=== PATIENT | male | born 1950 | race Caucasian/White ===

== ENCOUNTER 2021-02-22 14:38 | Inpatient (IN) | payer MEDICARE, OTHER ==
[~2021-02-22] VITALS: Ht 182.9 cm; Wt 75.7 kg
[2021-02-22] MEDS ORDERED: QUET300T2 PO (14:53)
[2021-02-22] MEDS ORDERED: QUET200T PO (14:53)
--- NOTE | 2021-02-22 15:01 | NUR ---
BIB private ambulance, transferred from [facility]. Pt refusing blood draw. Medically cleared for admit to MHU, per provider.
--- NOTE | 2021-02-22 16:38 | NUR ---
Report given to PATITO Valle from U. Pt taken to unit via wheelchair.
[2021-02-22] MEDS ORDERED: MAG HYDROX/AL HYDROX/SIMETH 30 ML LIQUID UDC PO PRN (17:00)
[2021-02-22] MEDS ORDERED: MAGNESIUM HYDROXIDE 30 ML LIQUID UDC PO PRN (17:00)
[2021-02-22] MEDS ORDERED: ACETAMINOPHEN 325 MG TABLET PO PRN (17:00)
[2021-02-22 17:47] VITALS: BP 137/90
--- NOTE | 2021-02-22 18:10 | NUR ---
ADMISSION NOTE: Patient admitted to MHU room 137-A from the emergency room. Patient admitted on a wheelchair accompanied by ER nursing staff. Patient admitted on a 5150 hold for GD that expires on 02/22/21 at 1900. Psychiatrist, Dr. Fraser, notified of admission and patient's hold status. Patient's belongings and valuables inventoried and placed in contraband locker. Patient admitted with lee totaling $2.61, placed in MHU safe. Patient provided with patient's right's handbook and 5150 hold advisement. Skin assessment completed, patient noted with long toenails and hard, dry skin in bottom of feet. Patient refusing photo to be taken. Wound consult placed. Patient states he is a Judaism and is refusing blood transfusions. Upon [id number] assessment, patient is anxious, restless, agitated, angry that he is being admitted, and noted with grandiose delusions. Patient states that the information on the 5150 advisement is incorrect, and that his plan for self care is to "use my money to buy a ticket and fly to [place]. [place]." When patient provided with reality orientation, he became angry and irritable. Patient denies suicidal and homicidal ideation. Patient states that he does not belong on this unit. Patient denies history of mental illness and denies inpatient hospitalizations, despite recently being discharge. Patient denies current or history of alcohol or recreational drug use. Patient is a current pack-a-day smoker. Patient is uncooperative with admission process, refusing to sign admission paperwork. Patient states he received 2 doses of the COVID-19 vaccine, but is unable to recall the month or day he received it. he states that he received the vaccine at [facility] but states "I don't carry a calendar with me to know what month it was. They didn't tell us what month we were in." Patient requires reality orientation.
[2021-02-22 20:01] VITALS: BP 134/81
--- NOTE | 2021-02-22 20:30 | NUR ---
Received patient in his room in bed. He is noted A/O x 3 able to ambulate with steady gait. he is noted hyperverbal; patient noted with poor insight and judgment as to the reason for his admission to MHU/ he stated, "I am not bipolar. my sister brought me here for no reason. She gets mad at me for no reason". Patient requires multiple redirection. He is reassured for his safety. He was given PO fluids and snacks. His V/S are stable. Safety and fall precaution in place. will continue with Q15 min checks.
[2021-02-22] MEDS ORDERED: DIVALPROEX 500 MG TABLET.DR PO SCH (21:00)
[2021-02-22] MEDS: FLUPHENAZINE HCL 5 MG TABLET PO SCH (21:23)
[2021-02-22] MEDS: BENZTROPINE MESYLATE 1 MG TABLET PO SCH (21:23)
[2021-02-22] MEDS: DIVALPROEX 250 MG TABLET.DR PO SCH (21:23)
--- NOTE | 2021-02-22 21:25 | NUR ---
patient was seen and evaluated by dr Fraser, he was placed on a 14 day hold, patient was notify of his hold. He was able able to comply with QHS medications. will continue to monitor.
[2021-02-22] MEDS ORDERED: METF-440 PO (21:44)
[2021-02-22] MEDS ORDERED: GABA-532 PO (21:44)
[2021-02-22] MEDS ORDERED: BLOO-360 IN (21:44)
[2021-02-22] MEDS ORDERED: LISI-782 PO (21:44)
[2021-02-22] MEDS ORDERED: INSU100V28 (21:44)
[2021-02-22] MEDS ORDERED: HYDR-3980 PO (21:44)
[2021-02-23] MEDS: TEMAZEPAM 7.5 MG CAPSULE PO PRN (00:27)
--- NOTE | 2021-02-23 06:51 | NUR ---
Patient slept for approx. 5 hrs through the night. he is noted calm and cooperative. no aggressive combative bx noted at this time.
[2021-02-23 07:30] VITALS: BP 107/63
[2021-02-23] MEDS: FLUPHENAZINE HCL 5 MG TABLET PO SCH ×2 (08:58→20:03)
[2021-02-23] MEDS: BENZTROPINE MESYLATE 1 MG TABLET PO SCH ×2 (08:58→20:03)
[2021-02-23] MEDS: DIVALPROEX 250 MG TABLET.DR PO SCH ×2 (08:58→20:03)
[2021-02-23] MEDS: NICOTINE 14 MG/24HR PATCH TD SCH (08:59)
[2021-02-23] MEDS: LORAZEPAM 0.5 MG TABLET PO PRN ×2 (09:01→20:03)
--- NOTE | 2021-02-23 13:57 | NUR ---
Firearms Report: [employer] Worker completed and submitted a [employer] firearms report for 5150 grave disability certifications. A copy of report has been placed in patient chart.
--- NOTE | 2021-02-23 14:29 | NUR ---
GPS: PT RECEIVED TODAY ON BED. PT ALERT AND ORIENTED X3. PT COMPLIANT WITH MEDICATION. HYPERVERBA, SEEN AT ACTIVITY ROOM AND PARTICIPATES WITH GROUP THERAPY.
[2021-02-23 15:37] VITALS: BP 108/53
--- NOTE | 2021-02-23 17:55 | NUR ---
GPS: HEARD PT TALKING OVER THE PHONE WITH HIS SISTER FROM [facility] THAT AT [facility], THERE WERE 2 EVIL EMPLOYEES ADMINISTERING POISON ON IV AND A LOT OF PT AND GETS MISSING. PT HAS WRITTEN NOTES ABOUT IT IN HIS POSITION. PT THIS AFTERNOON WAS ASKING FOR [facility] NUMBER.
[2021-02-23 20:42] VITALS: BP 96/62
[2021-02-24] MEDS: TEMAZEPAM 7.5 MG CAPSULE PO PRN ×2 (02:19→21:25)
[2021-02-24] MEDS: LORAZEPAM 0.5 MG TABLET PO PRN ×2 (05:08→15:23)
--- NOTE | 2021-02-24 06:17 | NUR ---
Received patient at the start of the shift ,walking rapidly in the direction of this literary writer, with a bedspread wrapped around him, exclaiming "I am [place]ac[place] ! ".This patient was up and down all night long. Uncooperative, forgetful, argumentative and no insight to his surroundings . Constantly disrupting the unit and not responding to redirection. Patient has poor impulse control and will sit down in the hallway for no apparent reason. Continuing to monitor for safety and behavior escalation.
[2021-02-24 07:30] VITALS: BP 174/93
--- NOTE | 2021-02-24 07:33 | NUR ---
[facility] Initial Discharge Note [facility] [address], [place] [address] where he resides with his sister. SW met with pt to discuss discharge planning and pt appeared uncertain about his living situation. [facility] received voice mail from pt's sister requesting assistance with placement in assisted living. [facility] called and left voice mail for pt's sister requesting call back to discuss discharge plan.
--- NOTE | 2021-02-24 07:33 | NUR ---
SW Family Contact SW received a voicemail from pt's sister Tana Mc ([phone]) requesting assistance seeking placement at assisted living. SW left a voicemail for patient's sister requesting call back to discuss treatment and discharge plan. Waiting for a call back.
[2021-02-24] MEDS: NICOTINE 14 MG/24HR PATCH TD SCH (08:12)
[2021-02-24] MEDS: DIVALPROEX 250 MG TABLET.DR PO SCH ×2 (08:12→20:18)
[2021-02-24] MEDS: BENZTROPINE MESYLATE 1 MG TABLET PO SCH ×2 (08:12→20:18)
[2021-02-24] MEDS: FLUPHENAZINE HCL 5 MG TABLET PO SCH ×2 (08:12→20:18)
--- NOTE | 2021-02-24 10:48 | NUR ---
WOUND CARE CONSULT: PT PRESENTS WITH LONG TOENAILS AND CALLUSES ON PLANTAR FEET WHICH ARE TENDER, PER PT REPORT. PT STATES WOULD LIKE MEAT SALES AND STORAGE MANAGER TO SEE CALLUSES BUT WANTS TOENAILS TO FALL OFF ON THEIR OWN. PT IS AMBULATORY AND CONTINENT. DR MISHRA NOTIFIED OF DPM CONSULT REQUEST. WILL SEE PRN. CADET IN AGREEMENT WITH PLAN OF CARE.
--- NOTE | 2021-02-24 15:08 | NUR ---
GPS: PT HYPERVERBAL WHEN IT COMES TO HIS SCIENTOLOGY. ATTENTION SEEKER AND LIKES PACING THE HALLWAY. PT USES THE PHONE TO CALL ALL THE NUMBERS IN HER MIND. PT LIKES TO CALL "[employer]ATION [employer]" TO REPORT INJURY. REDIRECTED PT.
--- NOTE | 2021-02-24 15:24 | NUR ---
GPS:l PT FEELS ANXIOUS, PACING THE HALLWAYS AND KEPT SHARI BACK TO USE THE TELEPHONE AND ASKING FOR YELLOW PAGES AND ASKING NURSE TO GET RANDOM PERSONS NUMBER. OFFERED ATIVAN AND TOLERATED WELL BY PT. WILL MONITOR.
--- NOTE | 2021-02-24 15:49 | NUR ---
GPS: PER PHARMACY, THEY DON'T HAVE UREA 20% CREAM AND THEY CANT GET HOLD OF THE MD.
--- NOTE | 2021-02-24 16:15 | NUR ---
PROBABLE CAUSE HEARING: Patient's probable cause hearing was held today for the 5250 hold. 5250 hold upheld for GD. Patient requesting a writ hearing. Writ hearing petition faxed to court by this entry writer. Court was called to confirm document was received but the court is closed.
[2021-02-24] MEDS ORDERED: UREA 20% CREAM 85 GM TUBE TP SCH (17:00)
[2021-02-24 20:08] VITALS: BP 123/73
[2021-02-25 07:30] VITALS: BP 115/79
[2021-02-25] MEDS: DIVALPROEX 250 MG TABLET.DR PO SCH (08:48)
[2021-02-25] MEDS: BENZTROPINE MESYLATE 1 MG TABLET PO SCH (08:48)
[2021-02-25] MEDS: FLUPHENAZINE HCL 5 MG TABLET PO SCH (08:48)
[2021-02-25] MEDS: NICOTINE 14 MG/24HR PATCH TD SCH (08:48)
[2021-02-25] MEDS: ENSURE ENLIVE (VAN) 240 ML LIQUID PO SCH (08:49)
--- NOTE | 2021-02-25 14:40 | NUR ---
GPS: PT ALERT AND COOPERATIVE WITH CARE. NEEDY AND LIKES PACING THE HALLWAY AND RESPONSIVE WITH STAFF AND OTHER PT. CALLS THE PHONE TO HIS SISTER AND OTHER RANDOM NUMBERS. NO AGITATION NOTED AT THIS TIME.
[2021-02-25 16:05] VITALS: BP 120/81
[2021-02-25 20:00] VITALS: BP 124/79
[2021-02-25] MEDS: TEMAZEPAM 7.5 MG CAPSULE PO PRN (21:20)
[2021-02-25] MEDS: LORAZEPAM 0.5 MG TABLET PO PRN (23:49)
--- NOTE | 2021-02-26 06:33 | NUR ---
GPS: Pt.slept 8.15 last night. Pt has a scheduled blood drawing soon and is already telling staff that he will refuse it because he's a Druze. Remains paranoid,delusional and grandiose at times. Re-directed prn. No aggressive behavior noted. Poor insight to present situation. Safety emphasized.
[2021-02-26 07:30] VITALS: BP 139/88
[2021-02-26] MEDS: ENSURE ENLIVE (VAN) 240 ML LIQUID PO SCH (09:00)
[2021-02-26] MEDS: NICOTINE 14 MG/24HR PATCH TD SCH (10:14)
[2021-02-26] MEDS: FLUPHENAZINE HCL 5 MG TABLET PO SCH ×3 (10:14→18:02)
[2021-02-26] MEDS: BENZTROPINE MESYLATE 1 MG TABLET PO SCH ×3 (10:14→18:02)
[2021-02-26] MEDS: DIVALPROEX 250 MG TABLET.DR PO SCH ×3 (10:14→18:02)
[2021-02-26 16:40] VITALS: BP 103/54
[2021-02-26] MEDS: UREA 20% CREAM 85 GM TUBE TP SCH (18:02)
[2021-02-26 20:28] VITALS: BP 124/83
[2021-02-26] MEDS: LORAZEPAM 0.5 MG TABLET PO PRN (20:57)
[2021-02-26] MEDS: TEMAZEPAM 15 MG CAPSULE PO PRN (22:48)
--- NOTE | 2021-02-26 22:52 | NUR ---
GPS: Pt.is anxious,restless and pacing along the hallways. Mentally pre-occupied. MD Fraser was just here and increased sleeping pill dosage. Restoril 15 mg given PO for insomnia. Quiet environment provided to facilitate sleep. Will continue to monitor.
[2021-02-27 08:04] VITALS: BP 98/67
[2021-02-27] MEDS: BENZTROPINE MESYLATE 1 MG TABLET PO SCH ×3 (08:27→17:17)
[2021-02-27] MEDS: NICOTINE 14 MG/24HR PATCH TD SCH (08:27)
[2021-02-27] MEDS: DIVALPROEX 250 MG TABLET.DR PO SCH ×3 (08:27→17:17)
[2021-02-27] MEDS: UREA 20% CREAM 85 GM TUBE TP SCH ×2 (08:27→17:17)
[2021-02-27] MEDS: FLUPHENAZINE HCL 5 MG TABLET PO SCH ×3 (08:27→17:17)
[2021-02-27] MEDS: ENSURE ENLIVE (VAN) 240 ML LIQUID PO SCH (08:39)
[2021-02-27 15:44] VITALS: BP 116/68
[2021-02-27 20:00] VITALS: BP 117/72
--- NOTE | 2021-02-27 20:30 | NUR ---
RECEIVED PATIENT IN THE DAY ROOM. HE IS NOTED A/O X 3, ABLE TO VERBALIZED FEELINGS. PT IS NOTED HYPERVERBAL, RESTLESS AT TIMES. PACING. POOR INSIGHT AND JUDGMENT WAS ALSO NOTED INTO HIS ADMISSION TO MHU. HOWEVER, PT IS COOPERATIVE WITH PLAN OF CARE. PO FLUIDS AND SNACKS WERE GIVEN. HE IS REASSURED FOR HIS SAFTY. SAFETY AND FALL PRECAUTION ARE IN PLACE. WILL CONTINUE TO MONITOR,
[2021-02-27] MEDS: TEMAZEPAM 15 MG CAPSULE PO PRN (21:16)
[2021-02-27] MEDS: LORAZEPAM 0.5 MG TABLET PO PRN (22:19)
[2021-02-28 07:35] VITALS: BP 104/66
[2021-02-28] MEDS: FLUPHENAZINE HCL 5 MG TABLET PO SCH ×3 (08:18→20:41)
[2021-02-28] MEDS: NICOTINE 14 MG/24HR PATCH TD SCH (08:18)
[2021-02-28] MEDS: ENSURE ENLIVE (VAN) 240 ML LIQUID PO SCH (08:18)
[2021-02-28] MEDS: BENZTROPINE MESYLATE 1 MG TABLET PO SCH ×3 (08:18→16:28)
[2021-02-28] MEDS: DIVALPROEX 250 MG TABLET.DR PO SCH ×3 (08:18→16:28)
[2021-02-28] MEDS: UREA 20% CREAM 85 GM TUBE TP SCH ×2 (08:19→16:29)
--- NOTE | 2021-02-28 12:40 | NUR ---
GPS: Nursing Notes: Thought Disorder: Patient is awake and responding to his name, gets easily anxious when redirected, forgetful at times, redirected and reoriented during shift, compliant with his medications, but refusing his lab. draws, stated "I am a Gnosticist..", constantly making phone calls, stated "I want to be discharge to [facility]..", minimal participation in therapeutic groups, needs prompting to be compliant with his ADL's, unkempt appearance, unable to formulate a viable plan for self care, continue with treatment plan.
[2021-02-28 15:56] VITALS: BP 103/58
[2021-02-28 20:02] VITALS: BP 106/62
[2021-02-28] MEDS: TEMAZEPAM 15 MG CAPSULE PO PRN (21:41)
[2021-02-28] MEDS: LORAZEPAM 0.5 MG TABLET PO PRN (22:51)
[2021-03-01 07:56] VITALS: BP 102/70
[2021-03-01] MEDS: UREA 20% CREAM 85 GM TUBE TP SCH ×2 (08:35→16:59)
[2021-03-01] MEDS: BENZTROPINE MESYLATE 1 MG TABLET PO SCH ×3 (08:35→16:59)
[2021-03-01] MEDS: DIVALPROEX 250 MG TABLET.DR PO SCH ×3 (08:35→16:59)
[2021-03-01] MEDS: FLUPHENAZINE HCL 5 MG TABLET PO SCH ×3 (08:35→20:14)
[2021-03-01] MEDS: NICOTINE 14 MG/24HR PATCH TD SCH (08:35)
[2021-03-01] MEDS: ENSURE ENLIVE (VAN) 240 ML LIQUID PO SCH (08:36)
[2021-03-01 15:55] VITALS: BP 107/70
--- NOTE | 2021-03-01 16:06 | NUR ---
SW Family Contact SW left a voicemail for patient's sister Eleanor Mc ([phone]) requesting call back to discuss treatment and discharge plan. Waiting for a call back.
[2021-03-01 19:51] VITALS: BP 110/66
[2021-03-01] MEDS: DIVALPROEX 500 MG TABLET.DR PO SCH (20:13)
[2021-03-01] MEDS: LORAZEPAM 0.5 MG TABLET PO PRN (20:14)
[2021-03-01] MEDS: TEMAZEPAM 15 MG CAPSULE PO PRN (21:18)
[2021-03-02 08:00] VITALS: BP 137/65
[2021-03-02] MEDS: BENZTROPINE MESYLATE 1 MG TABLET PO SCH ×3 (08:58→17:33)
[2021-03-02] MEDS: ENSURE ENLIVE (VAN) 240 ML LIQUID PO SCH (08:58)
[2021-03-02] MEDS: DIVALPROEX 500 MG TABLET.DR PO SCH ×2 (08:58→21:36)
[2021-03-02] MEDS: FLUPHENAZINE HCL 5 MG TABLET PO SCH ×3 (08:58→21:36)
[2021-03-02] MEDS: NICOTINE 14 MG/24HR PATCH TD SCH (08:58)
[2021-03-02] MEDS: UREA 20% CREAM 85 GM TUBE TP SCH ×2 (08:59→17:33)
[2021-03-02 15:39] VITALS: BP 110/54
--- NOTE | 2021-03-02 18:44 | NUR ---
GPS: PT ALERT AND ORIENTED. PT NEEDY AND ATTENTION SEEKER. COMPLIANT WITH MEDICATION AND COOPERATIVE WITH CARE. PACING ALONG THE HALLWAY. PT DELUSIONAL AND ANXIOUS AND PARANOID AT TIMES. PT REDIRECTABLE AND NO AGRESSIVE BEHAVIOR NOTED.
--- NOTE | 2021-03-02 19:23 | NUR ---
GPS: SPOKE WITH LILIANA EATON EHS TEACHER ABOUT PT TOMORRO W BUT PT WILL BE DISCHARGE PER DR MUIR TOMORROW WHO CALLED ME AFTER COMMUNICATING WITH HIM THROUGH TEXT. SO HEARING FOR THIS PT IS CANCELLED.
[2021-03-02 20:14] VITALS: BP 113/74
--- NOTE | 2021-03-02 22:00 | NUR ---
Order received from Dr Fraser to discharge pt in AM. Dr Fraser was aware of WRIT hearing in AM being cancelled. DR Fraser referred staff to confer with to health care social worker, for appropriate and safe placement of patient.
[2021-03-02] MEDS: TEMAZEPAM 15 MG CAPSULE PO PRN (22:36)
--- NOTE | 2021-03-03 03:47 | NUR ---
Received to care, isolative, but pleasant with staff. No interactions with peers. Was obsweved to be pacing to hallway, intermittently. PRN RESTORIL was given at 2236. He was concerned that this would be helpful in getting him to sleep, with out more medication, but did fall asleep, and continues to sleep most of the night, so far. No distress noted.
[2021-03-03] MEDS: LORAZEPAM 0.5 MG TABLET PO PRN (04:21)
--- NOTE | 2021-03-03 04:22 | NUR ---
PRN ativan, given for anxiety
[2021-03-03 07:30] VITALS: BP 108/56
[2021-03-03] MEDS: FLUPHENAZINE HCL 5 MG TABLET PO SCH (08:53)
[2021-03-03] MEDS: DIVALPROEX 500 MG TABLET.DR PO SCH (08:53)
[2021-03-03] MEDS: UREA 20% CREAM 85 GM TUBE TP SCH (08:54)
[2021-03-03] MEDS: ENSURE ENLIVE (VAN) 240 ML LIQUID PO SCH (08:54)
[2021-03-03] MEDS: NICOTINE 14 MG/24HR PATCH TD SCH (08:54)
[2021-03-03] MEDS: BENZTROPINE MESYLATE 1 MG TABLET PO SCH (08:54)
--- NOTE | 2021-03-03 09:11 | NUR ---
Social Work Discharge Plan spoke with patient's sister, Eleanor ([phone]) with whom he was living prior to being homeless. She wants patient to go to a facility.However, patient is refusing placement at this time. Patient is alert and oriented x3. His mood is euthymic and patient is eager to return home. Patient will go home via bus. The address is [address] [place] [address]. Sister was provided with resources such as Melissa, jean and care placement agent ) . Patient has an outpatient psychiatrist, Dr Mayorga at [facility] ), [address] [facility] [address]. His PMD is [facility] ([phone]). Sister wants to coordinate alternative placement with Melissa and will do so. Patient wants to go home vai bus and will be given a tap card.
--- NOTE | 2021-03-03 09:54 | NUR ---
GPS: PT ALERT AND ORIENTED X3. PT IS EXCITED TO BE DISCHARGE TODAY. PT COOPERATIVE WITH CARE AND COMPLIANT WITH MEDICATIONS. ABLE TO CARE FOR HIMSELF. PT WILL BE DISCHARGE TODAY RIDING THE BUS GOING HOME AND WILL HAVE RESOURCES THROUGH PAMELA, AND HAVE PSYCHIATRIST AND MD ON THE GO WITH CONTACT NUMBERS LISTED.
--- NOTE | 2021-03-03 12:05 | NUR ---
GPS: PT DISCHARGED FROM HOSPITAL. His mood is euthymic and patient is eager to return home. Patient will go home via bus. The address is [address] [place], [place] [id number]. Sister was provided with resources such as Melissa, board and care placement agent ) . Patient has an outpatient psychiatrist, Dr Mayorga at [facility] ), [id number] [place] [address]. [facility] [address]. His PMD is [facility] ([phone]). Sister wants to coordinate alternative placement with Melissa and will do so. all belongings given and valuables accepted and signed. pt denies pain or discomfort.
== END 2021-03-03 14:34 | disposition home or self-care (01) | DRG 885 ==
LOC: ER 14:38 → GPS 15:16
PROVIDERS: ADMIT Psychiatry & Neurology Psychiatry; ATTEND Internal Medicine
DX: F25.9 Schizoaffective disorder, unspecified (principal); L85.3 Xerosis cutis; R62.7 Adult failure to thrive; Z20.822 Contact with and (suspected) exposure to COVID-19; Z91.19 Patient's noncompliance with other medical treatment and regimen; R03.0 Elevated blood-pressure reading, without diagnosis of hypertension
CPT/HCPCS: 97161; A4663; J3490; J3590